=== PATIENT | male | born 1955 | race Caucasian/White ===

== ENCOUNTER 2024-02-14 19:45 | Inpatient (IN) | payer MEDICARE, BC ==
[~2024-02-14] VITALS: Ht 167.6 cm; Wt 97.5 kg
[2024-02-14] MEDS ORDERED: REMEDY ESSENTIAL ZINC PASTE 113 GM TOP PRN (21:00)
[2024-02-14] MEDS ORDERED: ATOR20TA PO (21:18)
[2024-02-14] MEDS ORDERED: DARI15TA16 PO (21:18)
[2024-02-14] MEDS ORDERED: DOCU50CA13 PO (21:18)
[2024-02-14] MEDS ORDERED: SEMA1PEN SQ (21:18)
[2024-02-14] MEDS ORDERED: RAMI5CAP66 PO (21:18)
[2024-02-14] MEDS ORDERED: FLUO10CA29 PO (21:18)
[2024-02-14] MEDS ORDERED: SENN8.6T19 PO (21:26)
[2024-02-14] MEDS ORDERED: NITR0.4T48 SL (21:26)
[2024-02-14] MEDS ORDERED: HYDR-3972 PO (21:26)
[2024-02-14] MEDS ORDERED: LORA0.5T48 PO (21:31)
[2024-02-14] MEDS ORDERED: POLY17PO4 PO (21:38)
[2024-02-14] MEDS ORDERED: ONDA4TAB11 PO (21:38)
[2024-02-14] MEDS ORDERED: ZOLP5TAB8 PO (21:38)
[2024-02-14] MEDS ORDERED: LORAZEPAM 0.5 MG TABLET PO PRN (22:00)
[2024-02-14] MEDS ORDERED: ONDANSETRON ODT 4 MG TAB.RAPDIS SL PRN (22:00)
[2024-02-14] MEDS ORDERED: NITROGLYCERIN 0.4 MG/TAB BOTTLE SL SCH (22:00)
[2024-02-14] MEDS: HYDROCODONE/APAP 5-325MG TABLET PO PRN (23:15)
[2024-02-14] MEDS: MIRALAX 17 GM POWD.PACK PO PRN (23:18)
[2024-02-14] MEDS: ZOLPIDEM 5 MG TABLET PO PRN (23:57)
[2024-02-15] MEDS: ATORVASTATIN 20 MG TABLET PO SCH (09:24)
[2024-02-15] MEDS: FLUOXETINE HCL 10 MG CAPSULE PO SCH (09:24)
[2024-02-15] MEDS: RAMIPRIL 5 MG CAPSULE PO SCH (09:34)
[2024-02-15] MEDS ORDERED: TEMA15CA PO (11:01)
[2024-02-15] MEDS ORDERED: NITROGLYCERIN 0.4 MG/TAB BOTTLE SL PRN (15:27)
[2024-02-15 16:00] VITALS: BP 115/68; TEMP 98.1; O2SAT 98
[2024-02-15] MEDS: SENNOSIDES 1 TABLET PO PRN (16:27)
[2024-02-15] MEDS: DOCUSATE SODIUM 100 MG CAPSULE PO SCH (20:39)
[2024-02-15] MEDS: TEMAZEPAM 7.5 MG CAPSULE PO SCH (21:22)
[2024-02-16 06:10] VITALS: BP 114/54; TEMP 98; O2SAT 98
[2024-02-16] MEDS ORDERED: [UNRECOGNIZED DRUG - OTHER] PO SCH (09:00)
[2024-02-16 19:50] VITALS: BP 103/58; TEMP 97.9; O2SAT 98
[2024-02-16] MEDS: ACETAMINOPHEN 325 MG TABLET PO PRN (20:45)
[2024-02-17 04:53] VITALS: BP 112/66; TEMP 98.2; O2SAT 95
[2024-02-17 13:00] VITALS: BP 120/57; TEMP 97.8; O2SAT 97
[2024-02-17 16:00] VITALS: BP 120/57; TEMP 98.5; O2SAT 97
[2024-02-17 21:37] VITALS: BP 115/63; TEMP 97.7; O2SAT 95
[2024-02-18 06:01] VITALS: BP 127/62; TEMP 97.4; O2SAT 97
[2024-02-18 12:00] VITALS: BP 113/0; TEMP 97.8; O2SAT 98
[2024-02-18 16:00] VITALS: BP 103/63; TEMP 98.3; O2SAT 98
[2024-02-18 20:00] VITALS: BP 125/50; TEMP 98.1; O2SAT 100
[2024-02-19 04:00] VITALS: BP 118/70; TEMP 97.1; O2SAT 98
[2024-02-19 08:32] VITALS: BP 122/77
[2024-02-19] MEDS ORDERED: ATORVASTATIN 20 MG TABLET PO SCH (21:00)
== END 2024-02-19 11:30 | disposition home health service (06) | DRG 949 ==
PROVIDERS: ADMIT Physical Medicine & Rehabilitation Pain Medicine; ATTEND Physical Medicine & Rehabilitation Pain Medicine
DX: Z48.812 Encounter for surgical aftercare following surgery on the circulatory system (principal); M62.82 Rhabdomyolysis; D50.0 Iron deficiency anemia secondary to blood loss (chronic); E11.9 Type 2 diabetes mellitus without complications; I10 Essential (primary) hypertension; K59.00 Constipation, unspecified; N40.0 Benign prostatic hyperplasia without lower urinary tract symptoms; F32.A Depression, unspecified; N32.81 Overactive bladder; Z91.81 History of falling; G47.33 Obstructive sleep apnea (adult) (pediatric)
CPT/HCPCS: A4663; A6213

== ENCOUNTER 2024-06-02 17:56 | Inpatient (IN) | payer MEDICARE, BC ==
[~2024-06-02] VITALS: Ht 167.6 cm; Wt 49.9 kg
[~2024-06-02 17:56] MED LIST: ATOR20TA PO; DARI15TA16 PO; DOCU50CA13 PO; FLUO10CA29 PO; HYDR-3972 PO; NITR0.4T48 SL; ONDA4TAB11 PO; POLY17PO4 PO; RAMI5CAP66 PO; SEMA1PEN SQ; SENN8.6T19 PO; TEMA15CA PO
[2024-06-02] MEDS ORDERED: NA P133E RC (19:26)
[2024-06-02] MEDS ORDERED: CELE200C PO (19:26)
[2024-06-02] MEDS ORDERED: LISI10TA29 PO (19:26)
[2024-06-02] MEDS ORDERED: TEMA15CA PO (19:26)
[2024-06-02] MEDS ORDERED: OXYC-128 PO (19:26)
[2024-06-02] MEDS ORDERED: TAMS-3 PO (19:26)
[2024-06-02] MEDS ORDERED: LORA-259 PO (19:26)
[2024-06-02] MEDS ORDERED: HEPA500034 SQ (19:26)
[2024-06-02] MEDS ORDERED: OXYB5TAB16 PO (19:26)
[2024-06-02] MEDS ORDERED: Vancomycin (19:26)
[2024-06-02] MEDS ORDERED: ACET325T53 PO (19:26)
[2024-06-02] MEDS ORDERED: POLY250017 PO (19:26)
[2024-06-02] MEDS ORDERED: CEFE1PIG3 IV (19:26)
[2024-06-02] MEDS ORDERED: ATOR20TA PO (19:26)
[2024-06-02] MEDS ORDERED: ONDA4TAB5 GT (19:26)
[2024-06-02] MEDS ORDERED: LORAZEPAM 1 MG TABLET PO PRN (20:15)
[2024-06-02] MEDS ORDERED: ONDANSETRON 4 MG/2 ML VIAL IV PRN (20:15)
[2024-06-02] MEDS ORDERED: VANCOMYCIN IV 1,000 MG in IV DEXTROSE 5% 250 ML IV SCH (20:15)
[2024-06-02 20:23] VITALS: BP 112/57; TEMP 98.7; O2SAT 95
[2024-06-02] MEDS: OXYCODONE/APAP 5-325 MG TABLET PO PRN (20:37)
[2024-06-02] MEDS ORDERED: VANCOMYCIN IV 200 ML ONE (20:52)
[2024-06-02] MEDS ORDERED: CEFEPIME HCL 1 G VIAL ONE (20:53)
[2024-06-02] MEDS: ATORVASTATIN 20 MG TABLET PO SCH (21:08)
[2024-06-02] MEDS: TEMAZEPAM 15 MG CAPSULE PO SCH (21:08)
[2024-06-02] MEDS: HEPARIN SODIUM,PORCINE 5,000 UNITS/ML VIAL SQ SCH (21:11)
[2024-06-02] MEDS ORDERED: CEFTRIAXONE 1 G in IV DEXTROSE 5% 50 ML IV SCH (21:45)
[2024-06-02] MEDS: VANCOMYCIN IV 1,000 MG in IV DEXTROSE 5% 250 ML IV SCH (21:47)
[2024-06-02] MEDS ORDERED: CEFEPIME HCL 1 GM in IV DEXTROSE 5% 100 ML IV SCH (22:00)
[2024-06-02] MEDS ORDERED: CEFTRIAXONE 1 G VIAL ONE (22:11)
[2024-06-02] MEDS: CEFTRIAXONE 1 G in IV DEXTROSE 5% 50 ML IV SCH (22:13)
[2024-06-03 04:49] VITALS: BP 124/62; TEMP 98.1; O2SAT 95
[2024-06-03] MEDS: MIRALAX 17 GM POWD.PACK PO PRN (04:52)
[2024-06-03] MEDS: OXYBUTYNIN CHLORIDE 5 MG TABLET PO SCH (08:31)
[2024-06-03] MEDS: FLUOXETINE HCL 10 MG CAPSULE PO SCH (08:31)
[2024-06-03] MEDS: LISINOPRIL 10 MG TABLET PO SCH (08:35)
[2024-06-03] MEDS: TAMSULOSIN HCL 0.4 MG CAP.SR.24H PO SCH (08:36)
[2024-06-03] MEDS: CELECOXIB 200 MG CAPSULE PO SCH (08:36)
[2024-06-03] MEDS: BISACODYL 5 MG TABLET.DR PO ONE (08:40)
[2024-06-03] MEDS: MIRALAX 17 GM POWD.PACK PO SCH (08:42)
[2024-06-03] MEDS: SENNOSIDES 1 TABLET PO SCH (08:43)
[2024-06-03] MEDS: ACETAMINOPHEN 500 MG TABLET PO PRN (15:04)
[2024-06-03 19:00] VITALS: BP 98/50; TEMP 98.3; O2SAT 95
[2024-06-04 14:50] VITALS: BP 108/48; TEMP 98; O2SAT 100
[2024-06-04 20:53] VITALS: BP 90/42; TEMP 97.9; O2SAT 96
[2024-06-05 06:33] VITALS: BP 111/53; TEMP 98.2; O2SAT 99
[2024-06-05 07:30] LABS: BASOPHILS # (AUTO) 0.1 K/UL (0.0-0.2); BASOPHILS % (AUTO) 1.5 % (0.0-2.0); EOSINOPHILS # (AUTO) 0.9 K/uL (0.0-0.7); EOSINOPHILS % (AUTO) 13.6 % (0.0-7.0); HEMATOCRIT 31.7 % (36.7-47.1); HEMOGLOBIN 11.1 g/dL (12.5-16.3); LYMPHOCYTES # (AUTO) 1.5 K/uL (0.8-4.8); LYMPHOCYTES % (AUTO) 22.5 % (20.5-51.5); MEAN CORPUSCULAR HEMOGLOBIN 28.3 uug (23.8-33.4); MEAN CORPUSCULAR HGB CONC 35 g/dL (32.5-36.3); MEAN CORPUSCULAR VOLUME 80.7 fL (73.0-96.2); MONOCYTES # (AUTO) 0.4 K/uL (0.1-1.30); MONOCYTES % (AUTO) 6.4 % (0.0-11.0); NEUTROPHILS # (AUTO) 3.8 K/uL (1.8-8.9); PLATELET COUNT (AUTO) 378 K/uL (152-348); RED BLOOD CELL COUNT(AUTO) 3.93 MIL/uL (4.06-5.63); RED CELL DISTRIBUTION WIDTH 16.2 % (12.1-16.2); WHITE BLOOD COUNT (AUTO) 6.8 K/uL (3.6-10.2)
[2024-06-05 07:33] LABS: DIFFERENTIAL COMMENT 1
[2024-06-05 07:54] LABS: CALCIUM 8.7 mg/dL (8.5-10.1); CREATININE 0.7 mg/dL (0.6-1.3); POTASSIUM 4.3 mmol/L (3.5-5.1)
[2024-06-05 09:11] LABS: NEUTROPHILS % (MANUAL) 63 % (42-75)
[2024-06-05 09:12] LABS: EOSINOPHILS % (MANUAL) 9 % (0-8); LYMPHOCYTES % (MANUAL) 24 % (20-40); MONOCYTES % (MANUAL) 3 % (2-10); PLATELET ESTIMATE INCREASED
[2024-06-05 09:13] LABS: METAMYELOCYTES % 1 % (0-1)
[2024-06-05 16:04] VITALS: BP 102/45; TEMP 98.3; O2SAT 96
[2024-06-05 20:08] VITALS: BP 107/46; TEMP 98.4; O2SAT 94
[2024-06-05] MEDS: ACETAMINOPHEN 325 MG TABLET PO PRN (22:57)
[2024-06-06 06:43] VITALS: BP 111/55; TEMP 98; O2SAT 98
[2024-06-06] MEDS ORDERED: LORAZEPAM 0.5 MG TABLET PO PRN (06:45)
[2024-06-06 08:30] VITALS: BP 115/59; O2SAT 100
[2024-06-06 16:08] VITALS: BP 116/53; TEMP 98.6; O2SAT 97
[2024-06-06 20:57] VITALS: BP 102/48; TEMP 98.6; O2SAT 94
[2024-06-07 05:44] VITALS: BP 105/63; TEMP 98.3; O2SAT 96
[2024-06-07 16:03] VITALS: BP 102/54; TEMP 98.4; O2SAT 98
[2024-06-07 20:00] VITALS: BP 106/51; TEMP 98.2; O2SAT 97
[2024-06-08 06:12] VITALS: BP 117/50; TEMP 98.1; O2SAT 99
[2024-06-08 15:58] VITALS: BP 101/47; TEMP 98.1; O2SAT 97
[2024-06-08 20:57] VITALS: BP 99/54; TEMP 98.4; O2SAT 95
[2024-06-09 07:18] VITALS: BP 103/53; TEMP 97.3; O2SAT 98
[2024-06-09 09:00] VITALS: BP 104/60
== END 2024-06-09 13:30 | disposition home health service (06) | DRG 949 ==
PROVIDERS: ADMIT Physical Medicine & Rehabilitation; ATTEND Physical Medicine & Rehabilitation Pain Medicine
DX: T81.41XD Infection following a procedure, superficial incisional surgical site, subsequent encounter (principal); I97.89 Other postprocedural complications and disorders of the circulatory system, not elsewhere classified; N40.0 Benign prostatic hyperplasia without lower urinary tract symptoms; I48.91 Unspecified atrial fibrillation; I10 Essential (primary) hypertension; D64.9 Anemia, unspecified; E11.9 Type 2 diabetes mellitus without complications; E86.1 Hypovolemia; K59.00 Constipation, unspecified; N32.81 Overactive bladder; F41.9 Anxiety disorder, unspecified; R39.15 Urgency of urination; G47.00 Insomnia, unspecified
CPT/HCPCS: 36415; 70030-TC; 85025; 97535-GO-CO; A9150; J0692; J0696; J1644; J3370; J7040; J7050

== ENCOUNTER 2024-08-07 18:52 | Inpatient (IN) | payer MEDICARE, BC ==
[2024-08-06 15:21] VITALS: BP 125/66
[~2024-08-07] VITALS: Ht 167.6 cm; Wt 93.9 kg
[~2024-08-07 18:52] MED LIST changes: +ACET325T53 PO; +CELE200C PO; -DARI15TA16 PO; -DOCU50CA13 PO; +HEPA500034 SQ; -HYDR-3972 PO; +LISI10TA29 PO; +LORA-259 PO; +NA P133E RC; +OXYB5TAB16 PO; +OXYC-128 PO; -POLY17PO4 PO; +POLY250017 PO; +TAMS-3 PO
[2024-08-07] MEDS ORDERED: REMEDY ESSENTIAL ZINC PASTE 113 GM TOP PRN (19:45)
[2024-08-07] MEDS ORDERED: ALPR0.255 PO (19:53)
[2024-08-07] MEDS ORDERED: CEFT1VIA15 IV (19:53)
[2024-08-07] MEDS ORDERED: VANC1.2521 IV (19:53)
[2024-08-07] MEDS ORDERED: SOLI5TAB2 PO (19:53)
[2024-08-07] MEDS ORDERED: NALO25TA4 PO (19:53)
[2024-08-07] MEDS ORDERED: FINA5TAB11 PO (19:53)
[2024-08-07 20:00] VITALS: BP 117/69; TEMP 98.8; O2SAT 94
[2024-08-07] MEDS: OXYCODONE HCL 5 MG TABLET PO PRN (21:33)
[2024-08-07] MEDS ORDERED: OXYCODONE/APAP 5-325 MG TABLET PO PRN (22:30)
[2024-08-07] MEDS ORDERED: ALPRAZOLAM 0.25 MG TABLET PO PRN (22:30)
[2024-08-07] MEDS ORDERED: ONDANSETRON ODT 4 MG TAB.RAPDIS SL PRN (22:30)
[2024-08-07] MEDS ORDERED: ACETAMINOPHEN 325 MG TABLET-SA PATIENTS-PAIN ONLY PO PRN (22:30)
[2024-08-07] MEDS ORDERED: FLEET ENEMA 133 ML BOTTLE RC PRN (22:30)
[2024-08-07] MEDS ORDERED: LORAZEPAM 1 MG TABLET PO PRN (22:30)
[2024-08-07] MEDS ORDERED: NITROGLYCERIN 0.4 MG/TAB BOTTLE SL PRN (22:30)
[2024-08-07] MEDS ORDERED: CEFTRIAXONE 1 G in IV DEXTROSE 5% 50 ML IV SCH (22:45)
[2024-08-07] MEDS ORDERED: CEFTRIAXONE /D5W 50ML IVPB **ER PYXIS IV ONE (23:16)
[2024-08-07] MEDS ORDERED: VANCOMYCIN IV 200 ML ONE ×2 (23:17→23:45)
[2024-08-07] MEDS: CEFTRIAXONE 2 G in IV DEXTROSE 5% 100 ML IV SCH (23:40)
[2024-08-07] MEDS: VANCOMYCIN IV 1,000 MG in IV DEXTROSE 5% 250 ML IV ONE (23:41)
[2024-08-07] MEDS ORDERED: CEFTRIAXONE 1 G VIAL ONE (23:45)
[2024-08-08] MEDS: SENNOSIDES 1 TABLET PO PRN (00:22)
[2024-08-08] MEDS: TEMAZEPAM 15 MG CAPSULE PO ONE (02:57)
[2024-08-08 05:00] VITALS: BP 121/69; TEMP 98.8; O2SAT 95
[2024-08-08] MEDS ORDERED: LORAZEPAM 0.5 MG TABLET PO PRN (05:30)
[2024-08-08 07:31] LABS: BASOPHILS # (AUTO) 0.1 K/UL (0.0-0.2); BASOPHILS % (AUTO) 0.9 % (0.0-2.0); EOSINOPHILS # (AUTO) 0.4 K/uL (0.0-0.7); HEMATOCRIT 30.2 % (36.7-47.1); LYMPHOCYTES # (AUTO) 1.3 K/uL (0.8-4.8); LYMPHOCYTES % (AUTO) 22.1 % (20.5-51.5); MEAN CORPUSCULAR HEMOGLOBIN 26.5 uug (23.8-33.4); MEAN CORPUSCULAR HGB CONC 33 g/dL (32.5-36.3); MEAN CORPUSCULAR VOLUME 79.5 fL (73.0-96.2); MONOCYTES # (AUTO) 0.5 K/uL (0.1-1.30); MONOCYTES % (AUTO) 8.7 % (0.0-11.0); NEUTROPHILS # (AUTO) 3.6 K/uL (1.8-8.9); NEUTROPHILS % (AUTO) 61.3 % (38.5-71.5); PLATELET COUNT (AUTO) 277 K/uL (152-348); RED BLOOD CELL COUNT(AUTO) 3.79 MIL/uL (4.06-5.63); RED CELL DISTRIBUTION WIDTH 18.1 % (12.1-16.2); WHITE BLOOD COUNT (AUTO) 5.9 K/uL (3.6-10.2)
[2024-08-08 07:40] LABS: DIFFERENTIAL COMMENT 1
[2024-08-08 07:48] LABS: ALANINE AMINOTRANSFERASE 36 U/L (16-63); ALBUMIN 2.2 g/dL (3.4-5.0); ALKALINE PHOSPHATASE 90 U/L (50-136); ASPARTATE AMINOTRANSFERASE 18 U/L (15-37); BILIRUBIN,TOTAL 0.4 mg/dL (0.2-1.0); CALCIUM 8.7 mg/dL (8.5-10.1); CARBON DIOXIDE 25 mmol/L (21-32); CHLORIDE 102 mmol/L (98-107); CREATININE 0.5 mg/dL (0.6-1.3); GLUCOSE 109 mg/dL (74-106); SODIUM SERUM 138 mmol/L (136-145); TOTAL PROTEIN, SERUM 6.4 g/dL (6.4-8.2); UREA NITROGEN, BLOOD 7 mg/dL (7-18)
[2024-08-08 08:00] VITALS: BP 125/63; TEMP 98.2; O2SAT 97
[2024-08-08] MEDS ORDERED: NALOXEGOL OXALATE PO SCH (09:00)
[2024-08-08] MEDS ORDERED: TAMSULOSIN HCL 0.4 MG CAP.SR.24H PO SCH (09:00)
[2024-08-08] MEDS ORDERED: SOLIFENACIN SUCCINATE 5 MG TABEC PO SCH ×2 (09:00)
[2024-08-08] MEDS ORDERED: FLUOXETINE HCL 10 MG CAPSULE PO SCH ×2 (09:00)
[2024-08-08] MEDS ORDERED: OXYBUTYNIN CHLORIDE 5 MG TABLET PO SCH ×2 (09:00)
[2024-08-08] MEDS ORDERED: LISINOPRIL 10 MG TABLET PO SCH ×2 (09:00)
[2024-08-08] MEDS ORDERED: HEPARIN SODIUM,PORCINE 5,000 UNITS/ML VIAL SQ SCH (09:00)
[2024-08-08] MEDS ORDERED: CELECOXIB 200 MG CAPSULE PO SCH (09:00)
[2024-08-08] MEDS: MIRALAX 17 GM POWD.PACK PO SCH (09:19)
[2024-08-08] MEDS: FINASTERIDE 5 MG TABLET PO SCH (09:20)
[2024-08-08] MEDS: HYDROCODONE/APAP 5-325MG TABLET PO PRN (09:20)
[2024-08-08] MEDS: VANCOMYCIN HCL 1,500 MG in IV DEXTROSE 5% 500 ML IV SCH (09:21)
[2024-08-08] MEDS: CELECOXIB 200 MG CAPSULE PO SCH (11:28)
[2024-08-08] MEDS: RAMIPRIL 5 MG CAPSULE PO SCH (11:28)
[2024-08-08] MEDS: TAMSULOSIN HCL 0.4 MG CAP.SR.24H PO SCH (11:28)
[2024-08-08] MEDS ORDERED: HYDROCODONE/APAP 10-325 MG TABLET PO PRN (12:00)
[2024-08-08] MEDS ORDERED: MAG HYDROX/AL HYDROX/SIMETH 30 ML LIQUID UDC PO PRN (12:00)
[2024-08-08] MEDS: HEPARIN SODIUM,PORCINE 5,000 UNITS/ML VIAL SQ SCH (13:50)
[2024-08-08 16:10] VITALS: BP 100/50; TEMP 97.8; O2SAT 98
[2024-08-08 20:00] VITALS: BP 121/45; TEMP 97.9; O2SAT 98
[2024-08-08] MEDS: ATORVASTATIN 20 MG TABLET PO SCH (20:53)
[2024-08-08] MEDS: TEMAZEPAM 15 MG CAPSULE PO SCH (20:53)
[2024-08-08] MEDS: MAGNESIUM HYDROXIDE 30 ML LIQUID UDC PO PRN (20:53)
[2024-08-09 05:00] VITALS: BP 119/66; TEMP 97.8; O2SAT 97
[2024-08-09 08:00] VITALS: BP 110/53; TEMP 97.8; O2SAT 99
[2024-08-09] MEDS: FLUOXETINE HCL 10 MG CAPSULE PO SCH (12:30)
[2024-08-09 16:00] VITALS: BP 103/53; TEMP 97.6; O2SAT 97
[2024-08-09] MEDS: ARGININE/GLUTAMINE/CALCIUM BMB 1 EACH POWD.PACK PO SCH (17:08)
[2024-08-09 20:10] VITALS: BP 114/75; TEMP 98; O2SAT 95
[2024-08-10] MEDS: ALPRAZOLAM 0.25 MG TABLET PO PRN (04:45)
[2024-08-10 06:49] VITALS: BP 111/62; TEMP 97.4; O2SAT 95
[2024-08-10] MEDS ORDERED: SOLIFENACIN SUCCINATE 5 MG TABEC PO SCH (09:00)
[2024-08-10] MEDS: OXYBUTYNIN XL 5 MG TABSR PO SCH (09:29)
[2024-08-10 10:44] LABS: *BILIRUBIN,URIN NEGATIVE (NEGATIVE); *BLOOD, URINE NEGATIVE (NEGATIVE); *CLARITY,URINE CLEAR (CLEAR); *COLOR,URINE YELLOW (YELLOW); *KETONES,URINE NEGATIVE (NEGATIVE); *PROTEIN,URINE NEGATIVE (NEGATIVE); *UROBILINOGEN,URINE 0.2 E.U./dl (NORMAL); LEUKOCYTE ESTERASE ,URINE NEGATIVE (NEGATIVE); NITRITE, URINE NEGATIVE (NEGATIVE); PH,URINE 7.5 (5.0-8.0); UGLUCOSE NEGATIVE (NEGATIVE)
[2024-08-10 15:00] VITALS: BP 119/58; TEMP 97.7; O2SAT 97
[2024-08-10 20:30] VITALS: BP 104/60; TEMP 98.6; O2SAT 96
[2024-08-11 15:00] VITALS: BP 122/63; TEMP 98.1; O2SAT 97
[2024-08-11 19:51] VITALS: BP 104/48; TEMP 98.7; O2SAT 95
[2024-08-11] MEDS: ACETAMINOPHEN 325 MG TABLET PO PRN (20:27)
[2024-08-11] MEDS: MELATONIN 3 MG TABLET PO SCH (21:17)
[2024-08-12 05:32] VITALS: BP 104/49; TEMP 98.7; O2SAT 98
[2024-08-12 15:21] VITALS: BP 131/77; TEMP 98.1; O2SAT 96
[2024-08-12 20:30] VITALS: BP 108/47; TEMP 97.8; O2SAT 96
[2024-08-12] MEDS: TRAZODONE 50 MG TABLET PO SCH (21:18)
[2024-08-12] MEDS: ZOLPIDEM 5 MG TABLET PO PRN (23:18)
[2024-08-13 11:02] VITALS: TEMP 97.9
[2024-08-13 17:41] VITALS: TEMP 98
[2024-08-13 20:20] VITALS: BP 106/62; TEMP 97.8; O2SAT 95
[2024-08-14 07:03] VITALS: BP 105/65; TEMP 97.9; O2SAT 96
[2024-08-14 08:00] VITALS: BP 105/49; TEMP 97.9; O2SAT 97
[2024-08-14 16:25] VITALS: BP 120/69; TEMP 97.8; O2SAT 98
[2024-08-14 20:00] VITALS: BP 112/56; TEMP 98; O2SAT 95
[2024-08-15 06:00] VITALS: BP 103/53; TEMP 98.2; O2SAT 100
[2024-08-15 08:00] VITALS: BP 122/59; TEMP 97.8; O2SAT 98
[2024-08-15 17:00] VITALS: BP 107/42; TEMP 98.1; O2SAT 99
[2024-08-16 06:30] VITALS: BP 106/62; TEMP 97.9; O2SAT 98
[2024-08-16] MEDS ORDERED: MIDAZOLAM HCL 2 MG/2 ML VIAL ONE (06:37)
[2024-08-16] MEDS ORDERED: FENTANYL CITRATE 100 MCG/2 ML AMPUL ONE (06:38)
[2024-08-16] MEDS ORDERED: PROPOFOL 200 MG/20 ML BOTTLE ONE (07:00)
[2024-08-16 07:39] VITALS: BP 137/41; TEMP 97.9; O2SAT 97
[2024-08-16] MEDS ORDERED: ONDANSETRON 4 MG/2 ML VIAL IV PRN (09:15)
[2024-08-16] MEDS ORDERED: HYDROMORPHONE 1 MG/1 ML DISP.SYRIN IV PRN (09:15)
[2024-08-16 09:56] VITALS: TEMP 97.1
[2024-08-19] MEDS ORDERED: CEFA2FRO IV (08:58)
== END 2024-08-16 09:19 | disposition short-term general hospital (02) | DRG 949 ==
PROVIDERS: ADMIT Physical Medicine & Rehabilitation Pain Medicine; ATTEND Physical Medicine & Rehabilitation Pain Medicine
DX: T84.53XD Infection and inflammatory reaction due to internal right knee prosthesis, subsequent encounter (principal); L02.415 Cutaneous abscess of right lower limb; Z96.653 Presence of artificial knee joint, bilateral; N40.1 Benign prostatic hyperplasia with lower urinary tract symptoms; R33.8 Other retention of urine; D63.8 Anemia in other chronic diseases classified elsewhere; E66.9 Obesity, unspecified; Z68.35 Body mass index [BMI] 35.0-35.9, adult; D64.9 Anemia, unspecified; E78.5 Hyperlipidemia, unspecified; G47.00 Insomnia, unspecified; G47.33 Obstructive sleep apnea (adult) (pediatric); I10 Essential (primary) hypertension; I48.0 Paroxysmal atrial fibrillation; R73.03 Prediabetes; Z74.09 Other reduced mobility; Z91.81 History of falling; M19.90 Unspecified osteoarthritis, unspecified site; F41.9 Anxiety disorder, unspecified
CPT/HCPCS: 36415; 73700; 85025; 87040; 93307; 97535-GO-CO; A4663; J0690; J0696; J1644; J2250; J2405; J2765; J3010; J3370; J3371; J3490; J7040; J7050; J7060; Q0162

== ENCOUNTER 2024-08-16 09:49 | Inpatient (IN) | payer MEDICARE, BC ==
[~2024-08-16] VITALS: Ht 167.6 cm; Wt 93.9 kg
[~2024-08-16 09:49] MED LIST changes: +ALPR0.255 PO; +CEFT1VIA15 IV; +FINA5TAB11 PO; +HYDROMORPHONE 2 MG/1 ML DISP.SYRIN ONE; -LISI10TA29 PO; -LORA-259 PO; -OXYB5TAB16 PO; -SEMA1PEN SQ; +SEVOFLURANE 250 ML BOTTLE ONE; +VANC1.2521 IV; +VANCOMYCIN 1000 MG VIAL ONE
[2024-08-16 10:10] VITALS: BP 90/41; TEMP 97.6; O2SAT 100
[2024-08-16] MEDS ORDERED: ONDANSETRON ODT 4 MG TAB.RAPDIS SL PRN (12:15)
[2024-08-16] MEDS ORDERED: OXYCODONE/APAP 5-325 MG TABLET PO PRN (12:15)
[2024-08-16] MEDS ORDERED: ACETAMINOPHEN 325 MG TABLET-SA PATIENTS-PAIN ONLY PO PRN (12:15)
[2024-08-16] MEDS ORDERED: NITROGLYCERIN 0.4 MG/TAB BOTTLE SL PRN (12:15)
[2024-08-16] MEDS ORDERED: HYDROCODONE/APAP 5-325MG TABLET PO PRN (14:45)
[2024-08-16] MEDS ORDERED: MORPHINE SULFATE 4 MG/1 ML DISP.SYRIN IV PRN (14:45)
[2024-08-16] MEDS ORDERED: MAGNESIUM HYDROXIDE 30 ML LIQUID UDC PO PRN (15:00)
[2024-08-16] MEDS ORDERED: PIPERACILLIN SODIUM/TAZOBACTAM 3.375 G in IV DEXTROSE 5% 50 ML IV SCH (15:00)
[2024-08-16] MEDS ORDERED: MAG HYDROX/AL HYDROX/SIMETH 30 ML LIQUID UDC PO PRN (15:00)
[2024-08-16] MEDS: PIPERACILLIN SODIUM/TAZOBACTAM 3.375 G in IV DEXTROSE 5% 100 ML IV SCH (15:57)
[2024-08-16] MEDS: ARGININE/GLUTAMINE/CALCIUM BMB 1 EACH POWD.PACK PO SCH (17:33)
[2024-08-16 20:36] VITALS: BP 135/77; TEMP 99.4; O2SAT 99
[2024-08-16] MEDS: TEMAZEPAM 15 MG CAPSULE PO SCH (21:00)
[2024-08-16] MEDS: HYDROCODONE/APAP 10-325 MG TABLET PO PRN (21:27)
[2024-08-16] MEDS: ATORVASTATIN 20 MG TABLET PO SCH (21:28)
[2024-08-16] MEDS: SENNOSIDES 1 TABLET PO PRN (21:28)
[2024-08-16] MEDS: TRAZODONE 50 MG TABLET PO SCH (21:28)
[2024-08-16] MEDS: ACIDOPHILUS/BULGARICUS CHEW TAB PO SCH (21:28)
[2024-08-16] MEDS: ENOXAPARIN SODIUM 40 MG/0.4 ML DISP.SYRIN SQ SCH (21:29)
[2024-08-16] MEDS ORDERED: CEFTRIAXONE 2 G in IV DEXTROSE 5% 100 ML IV SCH (22:00)
[2024-08-16] MEDS ORDERED: CEFTRIAXONE 1 G in IV DEXTROSE 5% 50 ML IV SCH (22:00)
[2024-08-17 07:09] VITALS: BP 100/54; TEMP 98.3; O2SAT 97
[2024-08-17] MEDS: CELECOXIB 200 MG CAPSULE PO SCH (08:55)
[2024-08-17] MEDS: FLUOXETINE HCL 10 MG CAPSULE PO SCH (08:55)
[2024-08-17] MEDS: FINASTERIDE 5 MG TABLET PO SCH (08:55)
[2024-08-17] MEDS: MIRALAX 17 GM POWD.PACK PO SCH (08:55)
[2024-08-17] MEDS: TAMSULOSIN HCL 0.4 MG CAP.SR.24H PO SCH (08:55)
[2024-08-17] MEDS: OXYBUTYNIN XL 5 MG TABSR PO SCH (08:56)
[2024-08-17] MEDS: RAMIPRIL 5 MG CAPSULE PO SCH (08:56)
[2024-08-17] MEDS: HEPARIN SODIUM,PORCINE 5,000 UNITS/ML VIAL SQ SCH (08:57)
[2024-08-17] MEDS: ACETAMINOPHEN 325 MG TABLET PO PRN (09:00)
[2024-08-17] MEDS ORDERED: Medication Not On Formulary EA (Polyethylene Glycol 3350 17 GM) PO SCH (09:00)
[2024-08-17] MEDS: REMEDY ESSENTIAL ZINC PASTE 113 GM TP SCH (09:02)
[2024-08-17 11:44] VITALS: BP 103/55; TEMP 98; O2SAT 97
[2024-08-17 15:37] VITALS: BP 139/68; TEMP 98; O2SAT 100
[2024-08-17 19:50] VITALS: BP 108/46; TEMP 98.7; O2SAT 95
[2024-08-17 21:22] LABS: BASOPHILS # (AUTO) 0.1 K/UL (0.0-0.2); BASOPHILS % (AUTO) 0.9 % (0.0-2.0); DIFFERENTIAL COMMENT 0; EOSINOPHILS # (AUTO) 0.5 K/uL (0.0-0.7); EOSINOPHILS % (AUTO) 6.7 % (0.0-7.0); HEMOGLOBIN 8.3 g/dL (12.5-16.3); LYMPHOCYTES # (AUTO) 1.6 K/uL (0.8-4.8); LYMPHOCYTES % (AUTO) 19.1 % (20.5-51.5); MEAN CORPUSCULAR HGB CONC 33 g/dL (32.5-36.3); MEAN CORPUSCULAR VOLUME 78.8 fL (73.0-96.2); MONOCYTES # (AUTO) 0.6 K/uL (0.1-1.30); MONOCYTES % (AUTO) 7.4 % (0.0-11.0); NEUTROPHILS # (AUTO) 5.4 K/uL (1.8-8.9); NEUTROPHILS % (AUTO) 65.9 % (38.5-71.5); PLATELET COUNT (AUTO) 377 K/uL (152-348); RED BLOOD CELL COUNT(AUTO) 3.17 MIL/uL (4.06-5.63); RED CELL DISTRIBUTION WIDTH 17.9 % (12.1-16.2); WHITE BLOOD COUNT (AUTO) 8.2 K/uL (3.6-10.2)
[2024-08-17 22:00] VITALS: BP 129/72; TEMP 97.8; O2SAT 95
[2024-08-18 04:25] VITALS: BP 100/45; TEMP 97.8; O2SAT 95
[2024-08-18] MEDS: BISACODYL 10 MG SUPP.RECT RC PRN (05:46)
[2024-08-18 11:37] VITALS: BP 98/52; TEMP 97.7; O2SAT 98
[2024-08-18] MEDS: FLEET ENEMA 133 ML BOTTLE RC PRN (13:43)
[2024-08-18 15:30] VITALS: BP 119/53; TEMP 98.8; O2SAT 99
[2024-08-18 19:12] VITALS: BP 98/57; TEMP 98; O2SAT 95
[2024-08-18] MEDS: TAMSULOSIN HCL 0.4 MG CAP.SR.24H PO SCH (21:33)
[2024-08-19 05:16] VITALS: BP 116/62; TEMP 97.8; O2SAT 100
[2024-08-19] MEDS: CEFAZOLIN 2 G in IV DEXTROSE 5% 100 ML IV SCH (05:33)
[2024-08-19] MEDS: ALPRAZOLAM 0.25 MG TABLET PO PRN (06:14)
[2024-08-19] MEDS ORDERED: CEFA2FRO IV (08:58)
[2024-08-19 11:45] VITALS: BP 117/55; TEMP 97.8; O2SAT 98
== END 2024-08-19 12:35 | disposition home health service (06) | DRG 920 ==
LOC: MEDSURG3 09:49
PROVIDERS: ADMIT Internal Medicine; ATTEND Internal Medicine
PROC: 0YP90YZ Removal of Other Device from Right Lower Extremity, Open Approach (ICD-10-PCS; principal; 2024-08-16)
PROC: XW0V0P7 Introduction of Gentamicin-eluting Bone Void Filler into Bones, Open Approach, New Technology Group 7 (ICD-10-PCS; 2024-08-16)
DX: T85.79XA Infection and inflammatory reaction due to other internal prosthetic devices, implants and grafts, initial encounter (principal); M00.9 Pyogenic arthritis, unspecified; T81.42XA Infection following a procedure, deep incisional surgical site, initial encounter; M60.003 Infective myositis, unspecified right leg; E66.9 Obesity, unspecified; Z68.33 Body mass index [BMI] 33.0-33.9, adult; I48.91 Unspecified atrial fibrillation; G47.00 Insomnia, unspecified; E78.5 Hyperlipidemia, unspecified; E11.65 Type 2 diabetes mellitus with hyperglycemia; G47.33 Obstructive sleep apnea (adult) (pediatric); F41.9 Anxiety disorder, unspecified; I10 Essential (primary) hypertension; N40.0 Benign prostatic hyperplasia without lower urinary tract symptoms
CPT/HCPCS: 36415; 85025; 85610; 85730; G0378; J0690; J0696; J1171; J1644; J1650; J2543; J3370

== ENCOUNTER 2024-10-15 15:10 | Inpatient (IN) | payer MEDICARE, BC ==
[~2024-10-15] VITALS: Ht 170.2 cm; Wt 93.0 kg
[~2024-10-15 15:10] MED LIST changes: +CEFA2FRO IV; -CEFT1VIA15 IV; -HYDROMORPHONE 2 MG/1 ML DISP.SYRIN ONE; -SEVOFLURANE 250 ML BOTTLE ONE; -VANC1.2521 IV; -VANCOMYCIN 1000 MG VIAL ONE
[2024-10-15] MEDS: IV NORMAL SALINE 1000 ML BAG IV ONE ×2 (16:05→18:00)
[2024-10-15 16:12] LABS: BASOPHILS % (AUTO) 0.1 % (0.0-2.0); EOSINOPHILS # (AUTO) 0.2 K/uL (0.0-0.7); EOSINOPHILS % (AUTO) 2.9 % (0.0-7.0); HEMATOCRIT 31.5 % (36.7-47.1); HEMOGLOBIN 10.5 g/dL (12.5-16.3); LYMPHOCYTES # (AUTO) 0.3 K/uL (0.8-4.8); LYMPHOCYTES % (AUTO) 3.9 % (20.5-51.5); MEAN CORPUSCULAR HEMOGLOBIN 25.8 uug (23.8-33.4); MEAN CORPUSCULAR HGB CONC 33 g/dL (32.5-36.3); MEAN CORPUSCULAR VOLUME 77.4 fL (73.0-96.2); MONOCYTES # (AUTO) 0.2 K/uL (0.1-1.30); MONOCYTES % (AUTO) 2.6 % (0.0-11.0); NEUTROPHILS # (AUTO) 6.9 K/uL (1.8-8.9); NEUTROPHILS % (AUTO) 90.5 % (38.5-71.5); PLATELET COUNT (AUTO) 147 K/uL (152-348); RED BLOOD CELL COUNT(AUTO) 4.07 MIL/uL (4.06-5.63); RED CELL DISTRIBUTION WIDTH 18.7 % (12.1-16.2); WHITE BLOOD COUNT (AUTO) 7.7 K/uL (3.6-10.2)
[2024-10-15 16:21] LABS: DIFFERENTIAL COMMENT 1
[2024-10-15 16:22] LABS: CALCIUM 7.4 mg/dL (8.5-10.1); CARBON DIOXIDE 27 mmol/L (21-32); CHLORIDE 94 mmol/L (98-107); CREATININE 0.9 mg/dL (0.6-1.3); GLUCOSE 104 mg/dL (74-106); POTASSIUM 3.5 mmol/L (3.5-5.1); SODIUM SERUM 130 mmol/L (136-145); UREA NITROGEN, BLOOD 31 mg/dL (7-18)
[2024-10-15 16:28] LABS: ALANINE AMINOTRANSFERASE 77 U/L (16-63); ALBUMIN 2.2 g/dL (3.4-5.0); ALKALINE PHOSPHATASE 167 U/L (50-136); ASPARTATE AMINOTRANSFERASE 63 U/L (15-37); BILIRUBIN,DIRECT 0.7 mg/dL (0.0-0.2); BILIRUBIN,TOTAL 1.1 mg/dL (0.2-1.0); TOTAL PROTEIN, SERUM 5.6 g/dL (6.4-8.2)
[2024-10-15 16:34] LABS: LACTIC ACID 2.1 mmol/L (0.4-2.0)
[2024-10-15] MEDS ORDERED: ONDANSETRON 4 MG/2 ML VIAL ONE (17:07)
[2024-10-15] MEDS ORDERED: MAGNESIUM HYDROXIDE 30 ML LIQUID UDC ONE (17:08)
[2024-10-15] MEDS ORDERED: HYDROMORPHONE 1 MG/1 ML DISP.SYRIN ONE ×2 (17:08→18:05)
[2024-10-15] MEDS: MAGNESIUM HYDROXIDE 30 ML LIQUID UDC PO ONE (17:16)
[2024-10-15] MEDS: ONDANSETRON 4 MG/2 ML VIAL IV ONE (17:17)
[2024-10-15] MEDS: HYDROMORPHONE 1 MG/1 ML DISP.SYRIN IV ONE ×2 (17:17→18:04)
[2024-10-15] MEDS ORDERED: REMEDY ESSENTIAL ZINC PASTE 113 GM TP PRN (19:15)
[2024-10-15] MEDS ORDERED: INSULIN REGULAR, HUMAN 300 UNITS/3 ML VIAL SQ PRN (19:15)
[2024-10-15] MEDS ORDERED: ONDANSETRON 4 MG/2 ML VIAL IV PRN (19:15)
[2024-10-15] MEDS ORDERED: OXYCODONE/APAP 5-325 MG TABLET PO PRN (19:15)
[2024-10-15] MEDS ORDERED: ALPRAZOLAM 0.25 MG TABLET PO PRN (19:15)
[2024-10-15] MEDS ORDERED: DEXTROSE 50% 50 ML DISP.SYRIN IV PRN (19:15)
[2024-10-15] MEDS: BLOOD SUGAR DIAGNOSTIC 1 EACH STRIP VI SCH (21:00)
[2024-10-15] MEDS ORDERED: TEMAZEPAM 15 MG CAPSULE PO SCH (21:00)
[2024-10-15 21:20] VITALS: O2SAT 98
[2024-10-15] MEDS: SULFAMETH/TRIMETH 800/160 MG TABLET PO SCH (21:45)
[2024-10-15] MEDS ORDERED: TRAZODONE 50 MG TABLET PO PRN (22:15)
[2024-10-15] MEDS ORDERED: ZOLPIDEM 5 MG TABLET PO PRN (22:15)
[2024-10-15] MEDS: IV NS 1000 ML 1,000 ML IV PRN (22:59)
[2024-10-16] VITALS (9 sets, daily range): BP systolic 91–115; BP diastolic 47–64; TEMP 97.8–99.1; O2SAT 96–99
[2024-10-16] MEDS ORDERED: TEMAZEPAM 15 MG CAPSULE PO PRN (00:15)
[2024-10-16] MEDS ORDERED: ALPRAZOLAM 0.25 MG TABLET PO PRN ×2 (05:30→16:30)
[2024-10-16] MEDS ORDERED: TRAZODONE 50 MG TABLET PO PRN (05:31)
[2024-10-16 07:31] LABS: BASOPHILS % (AUTO) 0.2 % (0.0-2.0); EOSINOPHILS # (AUTO) 0.3 K/uL (0.0-0.7); EOSINOPHILS % (AUTO) 4.7 % (0.0-7.0); HEMATOCRIT 26.8 % (36.7-47.1); HEMOGLOBIN 9.1 g/dL (12.5-16.3); LYMPHOCYTES # (AUTO) 0.3 K/uL (0.8-4.8); LYMPHOCYTES % (AUTO) 5.5 % (20.5-51.5); MEAN CORPUSCULAR HEMOGLOBIN 26.2 uug (23.8-33.4); MEAN CORPUSCULAR HGB CONC 34 g/dL (32.5-36.3); MEAN CORPUSCULAR VOLUME 77.6 fL (73.0-96.2); MONOCYTES # (AUTO) 0.3 K/uL (0.1-1.30); NEUTROPHILS # (AUTO) 4.7 K/uL (1.8-8.9); NEUTROPHILS % (AUTO) 83.6 % (38.5-71.5); PLATELET COUNT (AUTO) 141 K/uL (152-348); RED BLOOD CELL COUNT(AUTO) 3.45 MIL/uL (4.06-5.63); RED CELL DISTRIBUTION WIDTH 18.8 % (12.1-16.2); WHITE BLOOD COUNT (AUTO) 5.6 K/uL (3.6-10.2)
[2024-10-16 07:43] LABS: DIFFERENTIAL COMMENT 1
[2024-10-16 07:48] LABS: ALANINE AMINOTRANSFERASE 57 U/L (16-63); ALBUMIN 1.8 g/dL (3.4-5.0); ALKALINE PHOSPHATASE 137 U/L (50-136); ASPARTATE AMINOTRANSFERASE 38 U/L (15-37); BILIRUBIN,DIRECT 0.6 mg/dL (0.0-0.2); BILIRUBIN,TOTAL 0.9 mg/dL (0.2-1.0); CARBON DIOXIDE 25 mmol/L (21-32); CHLORIDE 99 mmol/L (98-107); CREATININE 0.6 mg/dL (0.6-1.3); GLUCOSE 96 mg/dL (74-106); MAGNESIUM 2.6 mg/dL (1.8-2.4); PHOSPHOROUS 2.6 mg/dL (2.5-4.9); POTASSIUM 3.5 mmol/L (3.5-5.1); SODIUM SERUM 133 mmol/L (136-145); TOTAL PROTEIN, SERUM 4.9 g/dL (6.4-8.2); UREA NITROGEN, BLOOD 19 mg/dL (7-18); URIC ACID 5.3 mg/dL (3.5-7.2)
[2024-10-16 07:49] LABS: AMMONIA 21 umol/L (11-32)
[2024-10-16 07:59] LABS: THYROID STIMULATING HORMONE 1.003 mIU/mL (0.358-3.740)
[2024-10-16 08:05] LABS: CREATINE KINASE, TOTAL 145 U/L (39-308)
[2024-10-16] MEDS: FLUOXETINE HCL 10 MG CAPSULE PO SCH (08:40)
[2024-10-16] MEDS: MIRALAX 17 GM POWD.PACK PO SCH (08:40)
[2024-10-16] MEDS ORDERED: RAMIPRIL 5 MG CAPSULE PO SCH ×2 (09:00)
[2024-10-16] MEDS ORDERED: FINASTERIDE 5 MG TABLET PO SCH ×2 (09:00)
[2024-10-16] MEDS ORDERED: Medication Not On Formulary EA (Polyethylene Glycol 3350 17 GM) PO SCH (09:00)
[2024-10-16] MEDS ORDERED: SULF1TAB48 PO (10:48)
[2024-10-16] MEDS ORDERED: ZOLP5TAB8 PO (10:49)
[2024-10-16] MEDS ORDERED: TRAZ-252 PO (10:50)
[2024-10-16] MEDS ORDERED: SOLI5TAB7 PO (10:50)
[2024-10-16] MEDS ORDERED: [UNRECOGNIZED DRUG - OTHER] PO (10:53)
[2024-10-16] MEDS ORDERED: CBD PO (10:55)
[2024-10-16] MEDS ORDERED: THC PO (10:55)
[2024-10-16] MEDS ORDERED: DARI15TA16 PO (12:10)
[2024-10-16] MEDS: NEOMY/BACITRAC/POLYMI OINT 28.35 GM TUBE TOP SCH (12:17)
[2024-10-16] MEDS: SENNOSIDES 1 TABLET PO PRN (14:36)
[2024-10-16] MEDS: ALPRAZOLAM 0.25 MG TABLET PO ONE (16:41)
[2024-10-16 18:46] LABS: *BILIRUBIN,URIN 1+ (NEGATIVE); *BLOOD, URINE 2+ (NEGATIVE); *CLARITY,URINE CLEAR (CLEAR); *KETONES,URINE TRACE (NEGATIVE); *PROTEIN,URINE 2+ (NEGATIVE); LEUKOCYTE ESTERASE ,URINE NEGATIVE (NEGATIVE); NITRITE, URINE NEGATIVE (NEGATIVE); PH,URINE 6.5 (5.0-8.0); UGLUCOSE NEGATIVE (NEGATIVE)
[2024-10-16 19:25] LABS: *COLOR,URINE DARK YELLOW (YELLOW)
[2024-10-16 19:37] LABS: *SODIUM RNDM,URINE 22 mmol/L (40-220)
[2024-10-16 20:04] LABS: RBC,URINE 50-80 /HPF (0-3); WBC,URINE 0-3 /HPF (0-3)
[2024-10-16 20:05] LABS: BACTERIA,URINE FEW /HPF (NONE SEEN); SQUAMOUS EPITHELIAL CELL,UR FEW /HPF (NONE SEEN)
[2024-10-16] MEDS ORDERED: TAMSULOSIN HCL 0.4 MG CAP.SR.24H PO SCH ×2 (21:00)
[2024-10-16] MEDS ORDERED: TRAZODONE 50 MG TABLET PO SCH (21:00)
[2024-10-16] MEDS: MAGNESIUM HYDROXIDE 30 ML LIQUID UDC PO PRN (21:18)
[2024-10-16] MEDS: TAMSULOSIN HCL 0.4 MG CAP.SR.24H PO SCH (21:21)
[2024-10-16] MEDS: TRAZODONE 50 MG TABLET PO SCH (21:21)
[2024-10-16] MEDS: ACETAMINOPHEN 325 MG TABLET PO PRN (21:23)
[2024-10-17 05:51] VITALS: BP 94/55; TEMP 98.3; O2SAT 95
[2024-10-17 07:46] VITALS: BP 104/56; TEMP 99.8; O2SAT 95
[2024-10-17 08:01] LABS: ALANINE AMINOTRANSFERASE 65 U/L (16-63); ALBUMIN 1.8 g/dL (3.4-5.0); ALKALINE PHOSPHATASE 340 U/L (50-136); ASPARTATE AMINOTRANSFERASE 57 U/L (15-37); CARBON DIOXIDE 24 mmol/L (21-32); CHLORIDE 100 mmol/L (98-107); CREATINE KINASE, TOTAL 63 U/L (39-308); CREATININE 0.8 mg/dL (0.6-1.3); GLUCOSE 97 mg/dL (74-106); POTASSIUM 3.7 mmol/L (3.5-5.1); SODIUM SERUM 132 mmol/L (136-145); TOTAL PROTEIN, SERUM 5.1 g/dL (6.4-8.2); UREA NITROGEN, BLOOD 18 mg/dL (7-18)
[2024-10-17 09:45] LABS: BASOPHILS % (AUTO) 0.3 % (0.0-2.0); EOSINOPHILS # (AUTO) 0.2 K/uL (0.0-0.7); EOSINOPHILS % (AUTO) 2.8 % (0.0-7.0); HEMOGLOBIN 10.3 g/dL (12.5-16.3); LYMPHOCYTES # (AUTO) 0.3 K/uL (0.8-4.8); LYMPHOCYTES % (AUTO) 4.3 % (20.5-51.5); MEAN CORPUSCULAR HEMOGLOBIN 25.8 uug (23.8-33.4); MEAN CORPUSCULAR HGB CONC 33 g/dL (32.5-36.3); MEAN CORPUSCULAR VOLUME 77.5 fL (73.0-96.2); MONOCYTES # (AUTO) 0.1 K/uL (0.1-1.30); MONOCYTES % (AUTO) 2.2 % (0.0-11.0); NEUTROPHILS # (AUTO) 5.8 K/uL (1.8-8.9); NEUTROPHILS % (AUTO) 90.4 % (38.5-71.5); PLATELET COUNT (AUTO) 191 K/uL (152-348); RED BLOOD CELL COUNT(AUTO) 4.01 MIL/uL (4.06-5.63); RED CELL DISTRIBUTION WIDTH 19.1 % (12.1-16.2); WHITE BLOOD COUNT (AUTO) 6.4 K/uL (3.6-10.2)
[2024-10-17 10:16] LABS: DIFFERENTIAL COMMENT 1
[2024-10-17 11:11] VITALS: BP 93/44; TEMP 100.2; O2SAT 95
[2024-10-17 11:42] LABS: ERYTHROCYTE SEDIMENTATION RATE 19 MM/HR (0-15)
[2024-10-17 14:23] VITALS: BP 91/55; TEMP 98.1; O2SAT 97
[2024-10-17] MEDS: INSULIN REGULAR, HUMAN 1000 UNIT/10 ML VIAL SQ PRN (16:56)
[2024-10-17] MEDS ORDERED: PIPERACILLIN/TAZO 2.25 G in IV DEXTROSE 5% 50 ML IV SCH (18:00)
[2024-10-17] MEDS: PIPERACILLIN SODIUM/TAZOBACTAM 3.375 G in IV DEXTROSE 5% 100 ML IV SCH (18:41)
[2024-10-17 19:45] VITALS: BP 101/55; TEMP 98.3; O2SAT 95
[2024-10-17] MEDS: ZOLPIDEM 5 MG TABLET PO PRN (21:37)
[2024-10-18] VITALS (7 sets, daily range): BP systolic 97–116; BP diastolic 55–64; TEMP 97–100.1; O2SAT 93–98
[2024-10-18 06:46] LABS: BASOPHILS % (AUTO) 0.4 % (0.0-2.0); EOSINOPHILS # (AUTO) 0.3 K/uL (0.0-0.7); EOSINOPHILS % (AUTO) 4.4 % (0.0-7.0); HEMATOCRIT 29.2 % (36.7-47.1); HEMOGLOBIN 9.7 g/dL (12.5-16.3); LYMPHOCYTES # (AUTO) 0.3 K/uL (0.8-4.8); LYMPHOCYTES % (AUTO) 4.6 % (20.5-51.5); MEAN CORPUSCULAR HEMOGLOBIN 25.7 uug (23.8-33.4); MEAN CORPUSCULAR HGB CONC 33 g/dL (32.5-36.3); MEAN CORPUSCULAR VOLUME 77.5 fL (73.0-96.2); MONOCYTES # (AUTO) 0.2 K/uL (0.1-1.30); MONOCYTES % (AUTO) 3.3 % (0.0-11.0); NEUTROPHILS # (AUTO) 6.2 K/uL (1.8-8.9); NEUTROPHILS % (AUTO) 87.3 % (38.5-71.5); PLATELET COUNT (AUTO) 216 K/uL (152-348); RED BLOOD CELL COUNT(AUTO) 3.76 MIL/uL (4.06-5.63); RED CELL DISTRIBUTION WIDTH 19.2 % (12.1-16.2); WHITE BLOOD COUNT (AUTO) 7.1 K/uL (3.6-10.2)
[2024-10-18 07:11] LABS: DIFFERENTIAL COMMENT 1
[2024-10-18 07:12] LABS: ALBUMIN 1.7 g/dL (3.4-5.0); BILIRUBIN,DIRECT 0.5 mg/dL (0.0-0.2); BILIRUBIN,TOTAL 0.8 mg/dL (0.2-1.0); TOTAL PROTEIN, SERUM 4.9 g/dL (6.4-8.2)
[2024-10-18 07:26] LABS: CALCIUM 7.4 mg/dL (8.5-10.1); CARBON DIOXIDE 24 mmol/L (21-32); CHLORIDE 99 mmol/L (98-107); CREATININE 0.8 mg/dL (0.6-1.3); GLUCOSE 112 mg/dL (74-106); POTASSIUM 3.7 mmol/L (3.5-5.1); SODIUM SERUM 130 mmol/L (136-145); UREA NITROGEN, BLOOD 19 mg/dL (7-18)
[2024-10-18] MEDS: METRONIDAZOLE 500 MG/NS 100ML 500 MG in PREMIXED 1 EACH IV SCH (21:39)
[2024-10-19 06:00] VITALS: BP 110/61; TEMP 98.2; O2SAT 95
[2024-10-19 06:53] LABS: BASOPHILS % (AUTO) 0.3 % (0.0-2.0); EOSINOPHILS # (AUTO) 0.4 K/uL (0.0-0.7); EOSINOPHILS % (AUTO) 5.9 % (0.0-7.0); HEMATOCRIT 30.4 % (36.7-47.1); HEMOGLOBIN 10.3 g/dL (12.5-16.3); LYMPHOCYTES # (AUTO) 0.7 K/uL (0.8-4.8); LYMPHOCYTES % (AUTO) 10.4 % (20.5-51.5); MEAN CORPUSCULAR HEMOGLOBIN 26.3 uug (23.8-33.4); MEAN CORPUSCULAR HGB CONC 34 g/dL (32.5-36.3); MEAN CORPUSCULAR VOLUME 77.4 fL (73.0-96.2); MONOCYTES # (AUTO) 0.3 K/uL (0.1-1.30); MONOCYTES % (AUTO) 4.9 % (0.0-11.0); NEUTROPHILS # (AUTO) 5.1 K/uL (1.8-8.9); NEUTROPHILS % (AUTO) 78.5 % (38.5-71.5); PLATELET COUNT (AUTO) 257 K/uL (152-348); RED BLOOD CELL COUNT(AUTO) 3.93 MIL/uL (4.06-5.63); RED CELL DISTRIBUTION WIDTH 18.9 % (12.1-16.2); WHITE BLOOD COUNT (AUTO) 6.5 K/uL (3.6-10.2)
[2024-10-19 07:13] LABS: CALCIUM 7.4 mg/dL (8.5-10.1); CARBON DIOXIDE 24 mmol/L (21-32); CHLORIDE 98 mmol/L (98-107); CREATININE 0.8 mg/dL (0.6-1.3); GLUCOSE 121 mg/dL (74-106); POTASSIUM 3.9 mmol/L (3.5-5.1); SODIUM SERUM 132 mmol/L (136-145); UREA NITROGEN, BLOOD 22 mg/dL (7-18)
[2024-10-19 07:21] LABS: DIFFERENTIAL COMMENT 1
[2024-10-19 08:09] LABS: ALBUMIN 1.7 g/dL (3.4-5.0); BILIRUBIN,DIRECT 0.4 mg/dL (0.0-0.2); BILIRUBIN,TOTAL 0.7 mg/dL (0.2-1.0); TOTAL PROTEIN, SERUM 5.1 g/dL (6.4-8.2)
[2024-10-19] MEDS: CEFTRIAXONE 2 G in IV DEXTROSE 5% 100 ML IV SCH (08:32)
[2024-10-19] MEDS ORDERED: CEFTRIAXONE 2 G VIAL IV SCH (09:00)
[2024-10-19 11:58] VITALS: BP 102/55; TEMP 98.4; O2SAT 98
[2024-10-19] MEDS ORDERED: METR500P3 IV (13:56)
[2024-10-19] MEDS ORDERED: Blood Sugar Diagnostic VI (13:56)
[2024-10-19] MEDS ORDERED: Neomy/Bacitrac/Polymi Oint TOP (13:56)
[2024-10-19] MEDS ORDERED: Sulfameth/Trimeth 800/160 Mg PO (13:56)
[2024-10-19] MEDS ORDERED: CEFT1FRO2 IV (13:56)
[2024-10-19] MEDS ORDERED: TRAZ-252 PO (13:56)
[2024-10-19] MEDS ORDERED: TAMS-3 PO (13:56)
[2024-10-19] MEDS ORDERED: PANT40TA49 PO (13:56)
[2024-10-19] MEDS ORDERED: ALPR0.25 PO (13:56)
[2024-10-19] MEDS ORDERED: POLY17PO4 PO (13:56)
[2024-10-19] MEDS ORDERED: SENN-175 PO (13:56)
[2024-10-19] MEDS ORDERED: INSU100V28 SQ (13:56)
[2024-10-19 16:09] VITALS: BP 103/61; TEMP 98.9; O2SAT 96
[2024-10-19] MEDS: PANTOPRAZOLE SODIUM 40 MG TABLET.DR PO SCH (16:17)
== END 2024-10-19 18:20 | DRG 558 ==
LOC: ER 15:10 → TELE3 18:15 → MEDSURG3 10-17 19:25
PROVIDERS: ADMIT Nurse Practitioner Acute Care; ATTEND Nurse Practitioner Acute Care
DX: M62.82 Rhabdomyolysis (principal); L03.115 Cellulitis of right lower limb; E87.1 Hypo-osmolality and hyponatremia; E44.0 Moderate protein-calorie malnutrition; E87.20 Acidosis, unspecified; R74.01 Elevation of levels of liver transaminase levels; T39.315A Adverse effect of propionic acid derivatives, initial encounter; Y92.039 Unspecified place in apartment as the place of occurrence of the external cause; E66.9 Obesity, unspecified; Z68.32 Body mass index [BMI] 32.0-32.9, adult; R62.7 Adult failure to thrive; R29.6 Repeated falls; E88.09 Other disorders of plasma-protein metabolism, not elsewhere classified; S51.801A Unspecified open wound of right forearm, initial encounter; W19.XXXA Unspecified fall, initial encounter; E86.0 Dehydration; E78.5 Hyperlipidemia, unspecified; E11.9 Type 2 diabetes mellitus without complications; I48.91 Unspecified atrial fibrillation; K59.00 Constipation, unspecified; Z79.899 Other long term (current) drug therapy; Z86.73 Personal history of transient ischemic attack (TIA), and cerebral infarction without residual deficits; Z96.653 Presence of artificial knee joint, bilateral; D72.810 Lymphocytopenia; F41.9 Anxiety disorder, unspecified; G47.33 Obstructive sleep apnea (adult) (pediatric); S83.8X1D Sprain of other specified parts of right knee, subsequent encounter; I10 Essential (primary) hypertension; T85.79XD Infection and inflammatory reaction due to other internal prosthetic devices, implants and grafts, subsequent encounter; N40.1 Benign prostatic hyperplasia with lower urinary tract symptoms; R33.8 Other retention of urine; E83.51 Hypocalcemia; I45.10 Unspecified right bundle-branch block
CPT/HCPCS: 36415; 70450; 70496; 71045; 73700; 74018; 76700; 78445; 82330; 83605; 83735; 83921; 84100; 84300; 84443; 84550; 85025; 85651; 85730; 86140; 87040; 87086; A4606; A4663; A9537; G0378; J0696; J1171; J1815; J2405; J2543; J3490; J7040

== ENCOUNTER 2024-10-17 09:38 | Inpatient (IN) | payer MEDICARE, BC ==
[~2024-10-17] VITALS: Ht 170.2 cm; Wt 93.0 kg
[~2024-10-17 09:38] MED LIST changes: -ACET325T53 PO; -ALPR0.255 PO; -ATOR20TA PO; +CBD PO; -CEFA2FRO IV; -CELE200C PO; +DARI15TA16 PO; -FINA5TAB11 PO; -HEPA500034 SQ; -NA P133E RC; -NITR0.4T48 SL; -ONDA4TAB11 PO; -OXYC-128 PO; -POLY250017 PO; -RAMI5CAP66 PO; -SENN8.6T19 PO; +SULF1TAB48 PO; -TEMA15CA PO; +THC PO; +TRAZ-252 PO; +ZOLP5TAB8 PO; +[UNRECOGNIZED DRUG - OTHER] PO
[2024-10-17 13:22] VITALS: BP 104/56; TEMP 98.3
[2024-10-17 13:37] VITALS: BP 104/56; TEMP 98.3
[2024-10-19] MEDS ORDERED: IOHEXOL 350 100 ML INFUS..BTL ONE (10:23)
[2024-10-19] MEDS ORDERED: IV NORMAL SALINE 250 ML IV ONE (10:23)
[2024-10-19] MEDS ORDERED: SWABABLE VALVE TRANSFER SET EA MC ONE (10:23)
[2024-10-19] MEDS ORDERED: TAMS-3 PO (13:56)
[2024-10-19] MEDS ORDERED: Sulfameth/Trimeth 800/160 Mg PO (13:56)
[2024-10-19] MEDS ORDERED: Neomy/Bacitrac/Polymi Oint TOP (13:56)
[2024-10-19] MEDS ORDERED: ALPR0.25 PO (13:56)
[2024-10-19] MEDS ORDERED: POLY17PO4 PO (13:56)
[2024-10-19] MEDS ORDERED: PANT40TA49 PO (13:56)
[2024-10-19] MEDS ORDERED: TRAZ-252 PO (13:56)
[2024-10-19] MEDS ORDERED: CEFT1FRO2 IV (13:56)
[2024-10-19] MEDS ORDERED: SENN-175 PO (13:56)
[2024-10-19] MEDS ORDERED: Blood Sugar Diagnostic VI (13:56)
[2024-10-19] MEDS ORDERED: INSU100V28 SQ (13:56)
[2024-10-19] MEDS ORDERED: METR500P3 IV (13:56)
[2024-10-19 20:33] VITALS: BP 101/47; TEMP 98.8; O2SAT 96
[2024-10-19] MEDS: TRAZODONE 50 MG TABLET PO SCH (20:45)
[2024-10-19] MEDS: TAMSULOSIN HCL 0.4 MG CAP.SR.24H PO SCH (20:45)
[2024-10-19] MEDS: SULFAMETH/TRIMETH 800/160 MG TABLET PO SCH (20:45)
[2024-10-19] MEDS ORDERED: TRIMETHOPRIM PO SCH (21:00)
[2024-10-19] MEDS ORDERED: SULFAMETHOXAZOLE PO SCH (21:00)
[2024-10-19] MEDS ORDERED: METRONIDAZOLE 500 MG/NS 100 ML PIGGYBACK IV SCH (22:00)
[2024-10-19] MEDS: ZOLPIDEM 5 MG TABLET PO PRN (22:41)
[2024-10-19] MEDS: METRONIDAZOLE 500 MG/NS 100ML 500 MG in PREMIXED 1 EACH IV SCH (22:43)
[2024-10-20] MEDS ORDERED: REMEDY ESSENTIAL ZINC PASTE 113 GM TOP PRN (00:30)
[2024-10-20] MEDS ORDERED: INSULIN REGULAR, HUMAN 300 UNITS/3 ML VIAL SQ PRN (05:30)
[2024-10-20] MEDS ORDERED: DEXTROSE 50% 50 ML DISP.SYRIN IV PRN ×2 (05:30)
[2024-10-20] MEDS ORDERED: INSULIN REGULAR, HUMAN 1000 UNIT/10 ML VIAL SQ PRN (05:30)
[2024-10-20] MEDS: PANTOPRAZOLE SODIUM 40 MG TABLET.DR PO SCH (06:13)
[2024-10-20] MEDS: BLOOD SUGAR DIAGNOSTIC 1 EACH STRIP VI SCH (06:31)
[2024-10-20 06:45] VITALS: BP 109/68; TEMP 98.5; O2SAT 97
[2024-10-20] MEDS ORDERED: BLOOD SUGAR DIAGNOSTIC 1 EACH STRIP VI SCH (07:30)
[2024-10-20 08:00] VITALS: TEMP 98.2
[2024-10-20] MEDS: CEFTRIAXONE 1 G in IV DEXTROSE 5% 50 ML IV SCH (09:53)
[2024-10-20] MEDS: DARIFENACIN 15 MG PO SCH (09:54)
[2024-10-20] MEDS: FLUOXETINE HCL 10 MG CAPSULE PO SCH (09:54)
[2024-10-20] MEDS: MIRALAX 17 GM POWD.PACK PO SCH (09:54)
[2024-10-20] MEDS: NEOMY/BACITRAC/POLYMI OINT 28.35 GM TUBE TOP SCH (09:55)
[2024-10-20] MEDS: ACETAMINOPHEN 325 MG TABLET PO PRN (11:07)
[2024-10-20] MEDS: INSULIN REGULAR, HUMAN 1000 UNIT/10 ML VIAL SQ PRN (11:16)
[2024-10-20 16:50] VITALS: TEMP 97.9
[2024-10-20 20:30] VITALS: BP 96/53; TEMP 98.7; O2SAT 97
[2024-10-21 06:56] VITALS: BP 111/59; TEMP 98.2; O2SAT 97
[2024-10-21 07:31] LABS: BASOPHILS % (AUTO) 0.7 % (0.0-2.0); EOSINOPHILS # (AUTO) 0.3 K/uL (0.0-0.7); EOSINOPHILS % (AUTO) 6.1 % (0.0-7.0); HEMATOCRIT 29.6 % (36.7-47.1); HEMOGLOBIN 10.1 g/dL (12.5-16.3); LYMPHOCYTES # (AUTO) 0.5 K/uL (0.8-4.8); LYMPHOCYTES % (AUTO) 10.7 % (20.5-51.5); MEAN CORPUSCULAR HEMOGLOBIN 26.3 uug (23.8-33.4); MEAN CORPUSCULAR HGB CONC 34 g/dL (32.5-36.3); MEAN CORPUSCULAR VOLUME 77.1 fL (73.0-96.2); MONOCYTES # (AUTO) 0.4 K/uL (0.1-1.30); MONOCYTES % (AUTO) 7.6 % (0.0-11.0); NEUTROPHILS # (AUTO) 3.8 K/uL (1.8-8.9); NEUTROPHILS % (AUTO) 74.9 % (38.5-71.5); PLATELET COUNT (AUTO) 322 K/uL (152-348); RED BLOOD CELL COUNT(AUTO) 3.83 MIL/uL (4.06-5.63); RED CELL DISTRIBUTION WIDTH 19.3 % (12.1-16.2); WHITE BLOOD COUNT (AUTO) 5.1 K/uL (3.6-10.2)
[2024-10-21 07:45] LABS: DIFFERENTIAL COMMENT 1
[2024-10-21 07:50] LABS: ALANINE AMINOTRANSFERASE 31 U/L (16-63); ALBUMIN 1.8 g/dL (3.4-5.0); ALKALINE PHOSPHATASE 250 U/L (50-136); ASPARTATE AMINOTRANSFERASE 21 U/L (15-37); BILIRUBIN,TOTAL 0.7 mg/dL (0.2-1.0); C-REACTIVE PROTEIN 4.73 mg/dL (0.00-0.30); CALCIUM 7.4 mg/dL (8.5-10.1); CARBON DIOXIDE 21 mmol/L (21-32); CHLORIDE 98 mmol/L (98-107); CREATININE 0.7 mg/dL (0.6-1.3); GLUCOSE 124 mg/dL (74-106); PHOSPHOROUS 2.9 mg/dL (2.5-4.9); POTASSIUM 4.3 mmol/L (3.5-5.1); SODIUM SERUM 130 mmol/L (136-145); TOTAL PROTEIN, SERUM 5.3 g/dL (6.4-8.2); UREA NITROGEN, BLOOD 15 mg/dL (7-18)
[2024-10-21 07:52] LABS: IRON, SERUM 19 ug/dL (50-175)
[2024-10-21] MEDS: METRONIDAZOLE 500 MG TABLET PO SCH (13:38)
[2024-10-21 16:00] VITALS: BP 104/53; TEMP 97.6; O2SAT 98
[2024-10-21 22:39] VITALS: BP 97/53; TEMP 98.7; O2SAT 97
[2024-10-22 07:12] VITALS: BP 128/55; TEMP 98.1; O2SAT 96
[2024-10-22 08:00] VITALS: BP 115/65; TEMP 97.8; O2SAT 98
[2024-10-22 16:00] VITALS: BP 111/63; TEMP 97.6; O2SAT 97
[2024-10-22] MEDS: FUROSEMIDE 40 MG TABLET PO SCH (16:00)
[2024-10-22] MEDS: SENNOSIDES 1 TABLET PO PRN (21:02)
[2024-10-22] MEDS: INSULIN REGULAR, HUMAN 300 UNITS/3 ML VIAL SQ PRN (21:27)
[2024-10-22 22:53] VITALS: BP 114/61; TEMP 98.4; O2SAT 100
[2024-10-23 07:22] VITALS: BP 101/58; TEMP 98.1; O2SAT 96
[2024-10-23 08:00] VITALS: BP 91/43; TEMP 98; O2SAT 97
[2024-10-23] MEDS ORDERED: FLUOXETINE HCL 10 MG CAPSULE PO SCH (09:00)
[2024-10-23] MEDS: FLUOXETINE HCL 20 MG CAPSULE PO SCH (09:11)
[2024-10-23 15:39] VITALS: BP 101/54; TEMP 98.5; O2SAT 99
[2024-10-23] MEDS: POTASSIUM CHLORIDE 10 MEQ TAB.PRT.SR PO SCH (17:00)
[2024-10-23] MEDS: FUROSEMIDE 20 MG TABLET PO ONE (17:31)
[2024-10-23] MEDS ORDERED: POTASSIUM CHLORIDE 8 MEQ TAB.PRT.SR PO ONE (17:39)
[2024-10-23] MEDS: TRAZODONE 50 MG TABLET PO SCH (20:35)
[2024-10-23 21:52] VITALS: BP 99/59; TEMP 98.5; O2SAT 97
[2024-10-24 07:29] LABS: ALANINE AMINOTRANSFERASE 35 U/L (16-63); ALBUMIN 2.1 g/dL (3.4-5.0); ALKALINE PHOSPHATASE 207 U/L (50-136); ASPARTATE AMINOTRANSFERASE 24 U/L (15-37); BILIRUBIN,TOTAL 0.6 mg/dL (0.2-1.0); CARBON DIOXIDE 22 mmol/L (21-32); CHLORIDE 98 mmol/L (98-107); CREATININE 0.8 mg/dL (0.6-1.3); GLUCOSE 126 mg/dL (74-106); MAGNESIUM 1.8 mg/dL (1.8-2.4); PHOSPHOROUS 3.5 mg/dL (2.5-4.9); POTASSIUM 4.7 mmol/L (3.5-5.1); SODIUM SERUM 129 mmol/L (136-145); UREA NITROGEN, BLOOD 11 mg/dL (7-18)
[2024-10-24 07:33] LABS: BASOPHILS % (AUTO) 0.5 % (0.0-2.0); DIFFERENTIAL COMMENT 0; EOSINOPHILS # (AUTO) 0.4 K/uL (0.0-0.7); EOSINOPHILS % (AUTO) 4.8 % (0.0-7.0); HEMOGLOBIN 11.5 g/dL (12.5-16.3); LYMPHOCYTES # (AUTO) 1.6 K/uL (0.8-4.8); LYMPHOCYTES % (AUTO) 19.4 % (20.5-51.5); MEAN CORPUSCULAR HEMOGLOBIN 26.3 uug (23.8-33.4); MEAN CORPUSCULAR HGB CONC 34 g/dL (32.5-36.3); MEAN CORPUSCULAR VOLUME 77.6 fL (73.0-96.2); MONOCYTES # (AUTO) 0.9 K/uL (0.1-1.30); MONOCYTES % (AUTO) 10.8 % (0.0-11.0); NEUTROPHILS # (AUTO) 5.3 K/uL (1.8-8.9); NEUTROPHILS % (AUTO) 64.5 % (38.5-71.5); PLATELET COUNT (AUTO) 524 K/uL (152-348); RED BLOOD CELL COUNT(AUTO) 4.38 MIL/uL (4.06-5.63); RED CELL DISTRIBUTION WIDTH 19.2 % (12.1-16.2); WHITE BLOOD COUNT (AUTO) 8.3 K/uL (3.6-10.2)
[2024-10-24 07:41] VITALS: BP 116/63; TEMP 98.6; O2SAT 98
[2024-10-24 08:07] VITALS: BP 100/52; TEMP 98.6; O2SAT 97
[2024-10-24] MEDS: ALPRAZOLAM 0.25 MG TABLET PO PRN (16:14)
[2024-10-24 16:16] VITALS: TEMP 97.9
[2024-10-24] MEDS: ENSURE WITH FIBER 237 ML LIQUID (CHOCOLATE) PO SCH (17:45)
[2024-10-24 20:17] VITALS: BP 106/60; TEMP 98.2; O2SAT 95
[2024-10-25 06:04] VITALS: BP 106/62; TEMP 98.2; O2SAT 95
[2024-10-25 08:00] VITALS: BP 101/63; TEMP 98.2; TEMP 99; O2SAT 96
[2024-10-25 13:09] LABS: BASOPHILS # (AUTO) 0.1 K/UL (0.0-0.2); BASOPHILS % (AUTO) 1.1 % (0.0-2.0); DIFFERENTIAL COMMENT 0; EOSINOPHILS # (AUTO) 0.3 K/uL (0.0-0.7); EOSINOPHILS % (AUTO) 5.8 % (0.0-7.0); HEMATOCRIT 31.3 % (36.7-47.1); HEMOGLOBIN 10.2 g/dL (12.5-16.3); LYMPHOCYTES # (AUTO) 0.8 K/uL (0.8-4.8); LYMPHOCYTES % (AUTO) 14.4 % (20.5-51.5); MEAN CORPUSCULAR HEMOGLOBIN 25.6 uug (23.8-33.4); MEAN CORPUSCULAR HGB CONC 33 g/dL (32.5-36.3); MEAN CORPUSCULAR VOLUME 78.3 fL (73.0-96.2); MONOCYTES # (AUTO) 0.5 K/uL (0.1-1.30); MONOCYTES % (AUTO) 8.3 % (0.0-11.0); NEUTROPHILS # (AUTO) 4.1 K/uL (1.8-8.9); NEUTROPHILS % (AUTO) 70.4 % (38.5-71.5); PLATELET COUNT (AUTO) 400 K/uL (152-348); RED BLOOD CELL COUNT(AUTO) 3.99 MIL/uL (4.06-5.63); RED CELL DISTRIBUTION WIDTH 19.5 % (12.1-16.2); WHITE BLOOD COUNT (AUTO) 5.9 K/uL (3.6-10.2)
[2024-10-25 13:23] LABS: ALANINE AMINOTRANSFERASE 34 U/L (16-63); ALBUMIN 1.6 g/dL (3.4-5.0); ALKALINE PHOSPHATASE 163 U/L (50-136); ASPARTATE AMINOTRANSFERASE 28 U/L (15-37); BILIRUBIN,TOTAL 0.3 mg/dL (0.2-1.0); CALCIUM 7.9 mg/dL (8.5-10.1); CARBON DIOXIDE 22 mmol/L (21-32); CHLORIDE 99 mmol/L (98-107); GLUCOSE 138 mg/dL (74-106); MAGNESIUM 1.6 mg/dL (1.8-2.4); PHOSPHOROUS 3.5 mg/dL (2.5-4.9); POTASSIUM 4.8 mmol/L (3.5-5.1); SODIUM SERUM 130 mmol/L (136-145); TOTAL PROTEIN, SERUM 5.4 g/dL (6.4-8.2); UREA NITROGEN, BLOOD 13 mg/dL (7-18)
[2024-10-25] MEDS: LYTES/YERBA SANTA 240 ML BOTTLE MM PRN (16:15)
[2024-10-25 16:42] VITALS: BP 111/60; TEMP 99.4; O2SAT 97
[2024-10-26 06:00] VITALS: BP 113/66; TEMP 97.8; O2SAT 98
[2024-10-26 08:16] VITALS: BP 111/72; TEMP 98.1; O2SAT 99
== END 2024-10-26 13:00 | disposition home health service (06) | DRG 557 ==
PROVIDERS: ADMIT Physical Medicine & Rehabilitation; ATTEND Physical Medicine & Rehabilitation
DX: M62.82 Rhabdomyolysis (principal); A41.9 Sepsis, unspecified organism; E44.0 Moderate protein-calorie malnutrition; E87.20 Acidosis, unspecified; L03.115 Cellulitis of right lower limb; F33.2 Major depressive disorder, recurrent severe without psychotic features; M00.9 Pyogenic arthritis, unspecified; E22.2 Syndrome of inappropriate secretion of antidiuretic hormone; D72.810 Lymphocytopenia; E11.65 Type 2 diabetes mellitus with hyperglycemia; E78.5 Hyperlipidemia, unspecified; I10 Essential (primary) hypertension; I48.91 Unspecified atrial fibrillation; R29.6 Repeated falls; Z96.653 Presence of artificial knee joint, bilateral; Z68.32 Body mass index [BMI] 32.0-32.9, adult; R62.7 Adult failure to thrive; E66.9 Obesity, unspecified; N40.1 Benign prostatic hyperplasia with lower urinary tract symptoms; R33.8 Other retention of urine; E86.0 Dehydration; D50.9 Iron deficiency anemia, unspecified; E88.09 Other disorders of plasma-protein metabolism, not elsewhere classified; K44.9 Diaphragmatic hernia without obstruction or gangrene; R31.29 Other microscopic hematuria; S40.811A Abrasion of right upper arm, initial encounter; S50.11XA Contusion of right forearm, initial encounter; T37.3X5A Adverse effect of other antiprotozoal drugs, initial encounter; T43.225A Adverse effect of selective serotonin reuptake inhibitors, initial encounter; Y92.9 Unspecified place or not applicable; R79.89 Other specified abnormal findings of blood chemistry; Z91.81 History of falling; Z74.09 Other reduced mobility; Z79.2 Long term (current) use of antibiotics; R43.2 Parageusia
CPT/HCPCS: 36415; 83550; 83735; 84100; 85025; 86140; 97535-GO-CO; A9155; J0696; J1815; J3490; Q9967